=== PATIENT | female | born 1995 | race Hispanic/Latino ===

== ENCOUNTER → 2021-07-21 | Outpatient (REF) | END | disposition home or self-care (01) | DRG 951 | LOC: LAB 11:38 | PROVIDERS: ATTEND Family Medicine | DX: Z20.822 Contact with and (suspected) exposure to COVID-19 (principal) ==

== ENCOUNTER 2022-03-16 19:32 | Emergency (ER) | payer OTHER ==
[~2022-03-16] VITALS: Ht 157.5 cm; Wt 63.6 kg
[~2022-03-16 19:32] MED LIST: VITAMIN B-121000 MCG PO
[2022-03-16 19:41] VITALS: BP 120/79
[2022-03-16 19:45] VITALS: BP 112/80
[2022-03-16 20:40] LABS: URINE BILIRUBIN - DIPSTICK NEGATIVE (NEGATIVE); URINE BLOOD DIPSTICK SMALL (NEGATIVE); URINE COLOR YELLOW; URINE GLUCOSE - DIPSTICK NEGATIVE (NEGATIVE); URINE KETONE NEGATIVE (NEGATIVE); URINE LEUK ESTERASE TRACE (NEGATIVE); URINE PH 5.5 (4.5-8.0); URINE PROTEIN - DIPSTICK NEGATIVE (NEG-TRACE); URINE SPECIFIC GRAVITY >=1.030; URINE UROBILINOGEN - DIPSTICK 0.2 E.U./dL (0.2)
[2022-03-16 20:41] LABS: HEMATOCRIT 39.8 % (37.0-47.0); HEMOGLOBIN 13.5 g/dl (12.0-16.0); IMMATURE GRANULOCYTES 0.3 % (0.0-5.0); MEAN CELL VOLUME 88.6 fL CALC (80.0-100.0); MEAN CORPUSCULAR HGB 30.1 pG CALC (26.0-32.0); MEAN CORPUSCULAR HGB CONC 33.9 g/dL CAL (32.0-36.0); NEUT# 5.39 thou/uL (2.00-7.15); RED BLOOD COUNT 4.49 mill/uL (4.20-5.60); RED CELL DISTRI WIDTH 11.9 % (11.5-15.5)
[2022-03-16 20:49] LABS: URINE NITRITE - DIPSTICK NEGATIVE (Negative)
[2022-03-16 20:53] LABS: URINE SQUAMOUS EPITHELIAL CELL FEW EPI/hpf (0-FEW)
[2022-03-16 20:58] LABS: ALBUMIN 4.7 g/dL (3.2-5.0); ALKALINE PHOSPHATASE 90 u/l (38-126); BILIRUBIN, TOTAL 0.5 mg/dL (0.0-1.4); BUN 21 mg/dL (7-17); BUN/CREATININE RATIO 23 (12-20 (CALC)); CHLORIDE 105 mmol/l (95-108); CREATININE 0.9 mg/dL (0.5-1.0); GFR > 60 ML/MIN (>=60 (CALC)); GFR FOR AFR.AMER. > 60 ML/MIN (>=60 (CALC)); POTASSIUM 3.9 mmol/l (3.5-5.1); SGOT/AST 27 u/l (14-36); SODIUM 138 mmol/l (137-146); TOTAL PROTEIN 8.2 g/dL (6.3-8.2)
[2022-03-16 20:59] LABS: ANION GAP 15 (6-22 (CALC)); CARBON DIOXIDE 22 mmol/l (22-30)
[2022-03-16] MEDS ORDERED: ISENTRESS100 MG PO (21:38)
[2022-03-16] MEDS ORDERED: COMBIVIR 1501 COMBO PO (21:38)
[2022-03-16 21:41] VITALS: BP 112/80
[2022-03-16] MEDS ORDERED: KEFLEX500 MG PO (21:50)
--- NOTE | 2022-03-17 11:28 | NUR ---
Pt unable to fill prescriptions for raltegravir and Combivir at local pharmacies. Dispensed 4 doses of each medication to pt to treat pt until pharmacy able to order and receive medication. Pt educated to take 1 tablet twice daily of each medication. Pt verbalized understanding and had no further questions.
[2022-03-17] MEDS ORDERED: COMBIVIR 1501 COMBO PO (12:40)
[2022-03-17] MEDS ORDERED: ISENTRESS100 MG PO (12:40)
== END 2022-03-16 21:52 | disposition home or self-care (01) | DRG 605 ==
LOC: ED 19:32
PROVIDERS: Emergency Medicine
DX: S61.230A Puncture wound without foreign body of right index finger without damage to nail, initial encounter (principal); N39.0 Urinary tract infection, site not specified; W46.1XXA Contact with contaminated hypodermic needle, initial encounter; Y99.0 Civilian activity done for income or pay